=== PATIENT | female | born 1970 | race Caucasian/White ===

== ENCOUNTER → 2017-02-19 | Outpatient (CLI) | payer OTHER ==
--- NOTE | ~2017-02-19 | SLE ---
[facility] [address] [place] [address] POLYSOMNOGRAPHY STUDY Name: MELQUIADES LONG Room #: REG [facility].#: [id number] Admission: 02/19/17 Attend Phys: Jennifer Wallace MD Discharge: Date of : 68 Report #: [id number] THIS REPORT FOR: //name// CC: Dr. William Tovar MD History A 47-year-old, height 70 inches, weight 290 pounds, usually goes to bed at 10:00 p.m., gets out of bed at 5:15 a.m., does not feel refreshed. No definite daytime somnolence. She does not know if she snores. Meds include Adderall, omeprazole, Zoloft, hydroxychloroquine, Zyrtec, and eye drops. COMMENTS: During study per nuclear worker technician note, the patient experienced claustrophobia and reflux, did not meet criteria until later in the study. SLEEP SUMMARY: Sleep efficiency 81%. Total sleep time 343 minutes. Sleep latency 5 minutes, REM latency 166 minutes. SLEEP STAGE: 1 - 8%, 2 - 67%, REM - 25%. RESPIRATORY SUMMARY: Central apnea 0, mixed apnea 0, obstructive apnea 4, hypopnea 86. Apnea/hypopnea index of 16 events per recording hour. Non-REM AHI 3, REM AHI 56. Supine AHI 23, left lateral 8 events per sleep hour. Max heart rate 115. Periodic limb movement with arousal index 2 events per sleep hour. 46% of the time in snoring. Low oxygen saturation 88%. IMPRESSION: 1. Obstructive sleep apnea/hypopnea, G47.33. 2. Positional component. 3. Periodic limb movement with arousal index of 1.8 events per hour. 4. Significant snoring noted. 5. Four beat arrhythmia noted. SUGGESTIONS: 1. In addition to specific therapy, the patient should be cautioned regarding driving or operating dangerous machinery unless fully alert. The patient should be cautioned regarding the use of respiratory depressants. 2. Sleep position retraining is recommended. 3. The patient should be cautioned on use of respiratory depressants. 4. May consider Holter monitor. 5. Further discussion regarding reflux and claustrophobia is recommended. 6. Oral appliance or appropriate surgery may be considered with appropriate followup. 7. A CPAP titration night or a home autotitrating CPAP depending on the patient's situation is recommended. 8. If signs and symptoms not improved with therapy, further evaluation is [facility] [address] [place] [address] POLYSOMNOGRAPHY STUDY Name: MELQUIADES LONG Room #: [facility] [id number] Admission: 02/19/17 Attend Phys: Jennifer Wallace MD Discharge: Date of : 68 Report #: [id number] recommended. Please do not hesitate to contact me if I may be of further assistance. <ELECTRONICALLY SIGNED> By: Jennifer Wallace MD 02/22/17 [id number] 1638 Jennifer Wallace MD /jinny
== END ==
LOC: SLEEPLAB 12:45
DX: G47.33 Obstructive sleep apnea (adult) (pediatric) (principal)

== ENCOUNTER 2017-07-08 05:04 | Inpatient (IN) | payer OTHER ==
[~2017-07-08] VITALS: Ht 175.3 cm; Wt 129.5 kg
[2017-07-08] VITALS (7 sets, daily range): BP systolic 114–147; BP diastolic 54–93
--- NOTE | ~2017-07-08 | O ---
[facility] [place] [address] OPERATIVE REPORT Name: MELQUIADES LONG Room #: 405-P [facility] IN M.R.#: [id number] Admission: 07/08/17 Attend Phys: Vu Thomas MD, Discharge: Date of : 68 Report #: [id number] THIS REPORT FOR: //name// CC: Vu Tovar DATE OF SERVICE: 07/08/2017 PREOPERATIVE DIAGNOSES: 1. Hypertension. 2. Hyperlipidemia. 3. Chronic fatigue. 4. Chronic bilateral lower extremity joint pain. 5. Lumbago. 6. Morbid obesity with a body mass index of 41.64. POSTOPERATIVE DIAGNOSES: 1. Hypertension. 2. Hyperlipidemia. 3. Chronic fatigue. 4. Chronic bilateral lower extremity joint pain. 5. Lumbago. 6. Morbid obesity with a body mass index of 41.64. PROCEDURES PERFORMED: 1. Laparoscopic sleeve gastrectomy. 2. Thorough esophagogastroduodenoscopy (EGD). SURGEON: Vu Thomas M.D. CO FOUNDER: Kavon Daniels M.D. ANESTHESIA: General endotracheal anesthesia. ESTIMATED BLOOD LOSS: Minimal (less than 10 mL). COMPLICATIONS: None appreciated. SPECIMENS: Two-thirds of the lateral gastric resection specimen to Pathology. INDICATIONS: The patient is a 47-year-old morbidly obese female who has presented for her desire for weight loss surgery as she has had a very long history of obesity and has had numerous weight loss attempts, all to no avail. The patient has greater than 100 pounds over her ideal body weight with a BMI of greater than 40 while carrying numerous comorbid conditions that are highly associated with her obesity as delineated above. The patient has been seen by [address] [address] OPERATIVE REPORT Name: MELQUIADES LONG Room #: 405-P ADM IN M.R.#: [id number] Admission: 07/08/17 Attend Phys: Vu Thomas MD, Discharge: Date of : 68 Report #: [id number] her primary care physician as well as by Nutrition and Psychology and has been cleared to proceed forward with bariatric surgery as well as having it indicated that it is necessary for weight loss and resolution of her comorbid conditions. After undergoing an aggressive period of attempted diet and exercise under my direction with no real weight loss, indication was therefore to proceed forward with surgical intervention today. DESCRIPTION OF PROCEDURE: After explaining the risks, benefits and alternatives of the procedure with the patient in detail in the preoperative holding area and obtaining written consent, the patient was brought to the operating room and placed supine on the operating room table. After conducting a thorough timeout procedure verifying correct patient and procedure, the patient was given general endotracheal anesthesia. Once adequate anesthesia was obtained, her SCDs were hooked up to pneumatic compression device. She was given a preoperative dose of antibiotics in line with the SCIP protocol. The patient's abdomen was now prepped and draped in standard surgical sterile fashion after positioning her in the low lithotomy position with her legs in the Yellofin stirrups. I began the procedure by performing a thorough EGD. The Runainon upper endoscope was used to intubate the oropharynx and was traversed down into the esophagus with ease. This was advanced through the pylorus into the second portion of the duodenum where slow careful withdrawal of the scope showed no evidence of duodenitis, gastritis, esophagitis, mass lesions or ulcerations. A retroflexion view of the scope within the gastric lumen showed no evidence of a hiatal hernia. The scope was straightened out with its tip at the level of the pylorus where it was then taped into position and the stomach was fully desufflated. I now turned my attention to the operative portion of the procedure. After sterilely scrubbing, 5 mL of 0.5% Marcaine with epinephrine were used to anesthetize the skin in the right upper quadrant and midclavicular line in the subcostal location. A #15 bladed scalpel was used to create a 1.5 cm transverse skin incision at this location. A 15 mm Visiport was placed over 0 degree 5 mm laparoscope and was introduced through this incision site. Once intraabdominal placement was verified visually, the obturator for the trocar and laparoscope were both removed and the abdomen was insufflated to 15 mmHg using carbon dioxide gas. The laparoscope was changed to a 5-mm 30-degree laparoscope, which was reintroduced through this trocar. The entire abdomen was evaluated to ensure no injury upon entry and no pathology. I now proceeded to place 3 additional 5 mm trocars in the patient's left mid abdomen. The first was placed 1 cm superior to the umbilicus and 2 cm to the patient's left, another one was placed 5 cm lateral to that and the final one was placed in the extreme left lateral flank. All 3 additional 5 mm ports were placed under direct vision after anesthetizing the skin at each location with 5 mL of 0.5% Marcaine with epinephrine and I had created small skin nicks using #15 bladed scalpel. Laparoscope was placed with a 5 mm port just to the left of the patient's umbilicus and she was placed in steep reverse Trendelenburg position. I now placed a Carmen liver retractor in subxiphoid location by anesthetizing the skin at that location with 5 mL of 0.5% Marcaine with epinephrine and I had created a small skin alyssa using #15 [facility] [address] [place] [address] OPERATIVE REPORT Name: MELQUIADES LONG Room #: 405-P ADM IN M.R.#: [id number] Admission: 07/08/17 Attend Phys: Vu Thomas MD, Discharge: Date of : 68 Report #: [id number] bladed scalpel. I utilized the obturator from the 5 mm port to penetrate the fascia at this level and then maneuvered the Carmen retractor through this defect where it was positioned up under the left lobe of the liver and was held up against the posterior aspect in the anterior abdominal wall. This was then fixed into position at this location using the iron sports broadcasting internship device to stabilize it and we had complete access to the full stomach and hiatal region again seeing no evidence of a hiatal hernia. I now started my dissection after identifying our landmarks. The vein of Traore was identified overlying the pylorus. I measured 4 cm proximal to this location and began taking down the short gastric arteries from this location all the way up the greater curvature of the stomach using the Harmonic scalpel for hemostasis. Once I arrived upon the base of the left jacquelyn, the stomach was elevated and all posterior gastric attachments were taken down ensuring that we were well away from both the posterior aspect of the stomach as well as the anterior aspect of the pancreas so as to prevent injury from thermal spread. Now that I have full mobilization of the stomach, the EGD scope was positioned to run along the lesser curvature of the stomach and the OG tube was removed. I now started the stapling portion of the procedure. Using the [place] 60 mm stapler with a black load utilizing Porter's Hawa-Strip buttressing material placed over it, I placed a staple into the abdomen through the 15 mm port and this first firing was carried out starting at the location 4 cm proximal to the pylorus. This was then fired right along the scope firing not too close to the scope so as not to cause stricturing, especially at the incisura. Another firing of an additional black load again utilizing Porter's Hawa-Strip buttressing material was carried out following the scope as a 34-Armenian bougie. Five additional firings of green loads all utilizing Porter's Hawa-Strip buttressing material were carried out following the scope as a bougie all the way up to the left jacquelyn until the stomach was completely transected. The resection specimen was placed in the right upper quadrant and staple line was evaluated. There were a few areas of oozing along the staple line and as such, a laparoscopic clip product advisor was used to obtain complete hemostasis at those areas of ooze. A 10 mL of Tisseel on the Duplospray device were now used to coat the entirety of the staple line with fibrin glue. Once this was dry, normal saline was instilled in the upper abdomen and the EGD scope was reignited and the stomach was gently reinsufflated. The EGD scope was removed slowly evaluating the staple line from the inside to ensure hemostasis and we saw no bleeding whatsoever. Upon gently insufflating the stomach having the staple line submerged under the normal saline in the abdomen, we saw no evidence of bubbling thereby signifying a negative leak test. The EGD scope was used to fully desufflate the stomach, was removed via the oropharynx, passed off the field and I sterilely reentered the operative field once again. Normal saline was gently suctioned out of the abdomen and it ran clear throughout. The Carmen liver retractor was let down and the liver was healthy and uninjured. The sleeve gastrectomy was evaluated and had excellent orientation with no twisting and we had a negative leak test with complete hemostasis. The resection specimen was now removed from the abdomen through the 15 mm fascial incision under direct vision. I then closed the 15 mm fascial incision using 0 [facility] [place] [address] OPERATIVE REPORT Name: MELQUIADES LONG Room #: 405-P ADM IN M.R.#: [id number] Admission: 07/08/17 Attend Phys: Vu Thomas MD, Discharge: Date of : 68 Report #: [id number] PDS suture on a Yovany-Oral needle under direct vision. The abdomen was fully desufflated. All ports were removed under direct vision. A 4-0 Monocryl was used in a standard subcuticular fashion for all skin incisions and Dermabond glue was applied to all skin wounds. The corner of the resection specimen that had been removed was trimmed away and normal saline was passively instilled into the resection specimen yielding 1850 mL in the resection specimen itself. At the end of the procedure, all instrument, needle and sponge counts were correct. The patient tolerated the procedure without incident, was awakened in the operating room and transitioned to the recovery room in stable condition with no apparent complications. <ELECTRONICALLY SIGNED> By: Vu Thomas MD, FACS 07/09/17 0757 [id number] 1719 Vu Thomas MD, FACS /nt
--- NOTE | ~2017-07-08 | S ---
[facility] [place] [place] [address] SURGICAL PATH RPT PROCEDURE Name: MELQUIADES ANDERS Room #: 405-P [facility] IN M.R.#: [id number] Admission: 07/08/17 Date of : 68 Discharge: 07/09/17 Report #: [id number] Path Case #: [id number] PATHOLOGY REPORT COLLECTION DATE: 07/08/2017 RECEIVED DATE: 07/08/2017 SUBMITTING PHYS: Dr. Vu Thomas OTHER PHYS: SPECIMEN(S) RECEIVED: A.Gastric sleeve * * * * * * * * * * * * FINAL DIAGNOSIS: Stomach, gastric sleeve, partial sleeve gastrectomy: - No diagnostic abnormalities present, history of morbid obesity. (IUV:mgr; 07/12/2017) PATHOLOGIST: Mary Cano M.D. REPORT ELECTRONICALLY SIGNED BY: Mary Cano M.D. DATE/TIME: 07/12/2017 18:50 * * * * * * * * * * * * GROSS PATHOLOGY: The specimen is received in formalin, labeled "Melquiades Anders gastric sleeve" is a partial gastrectomy specimen weighing 204 g and measuring 27.6 x 11.5 x 3.5 cm. The serosa has a cullen to purple chavez, focally congested appearance. The margin resection is closed with a line of mariano. The lumen contains brown green to pink red, blood-tinged mucoid material. The mucosa is cullen-green to pink red, velvety and shows its normal rugal folds. No mass lesions or transmural defects are identified. Exhibition Organiser sections are submitted in cassettes A1-A3. (JWP; 07/09/2017) CLINICAL HISTORY: Morbid obesity INITIAL CPT CODE(S): A; 50739 Professional services performed by [facility] at [facility] [address], [place] [address] Technical services performed by [facility] at [address] [place] [address] [address] [place] [address] SURGICAL PATH RPT PROCEDURE Name: MELQUIADES ANDERS Room #: 405-P [facility] IN .R.#: [id number] Admission: 07/08/17 Date of : 68 Discharge: 07/09/17 Report #: [id number] Path Case #: [id number] [place] [address]. [facility] [address] [place] [address] PHONE: [phone] DIRECTOR: John Murguia M.D. * * * END OF REPORT * * *
[~2017-07-08 05:04] MED LIST: HYDROXYCHLOROQ200 M1 PO; OMEPRAZOLE40 MG PO; ZOLOFT25 MG PO
[2017-07-09 00:26] VITALS: BP 91/52
[2017-07-09 03:45] VITALS: BP 100/60
[2017-07-09 05:48] LABS: HEMATOCRIT 37.5 % (37.0-47.0); HEMOGLOBIN 12.8 gm/dL (12.0-15.0); MCH 31.5 pg (26.0-34.0); MCHC 34.1 g/dL (28.0-37.0); MCV 92.6 fL (80.0-100.0); RBC 4.05 mil/uL (4.20-5.00); RDW 13.4 % (10.5-14.5); WBC 9.4 thou/uL (4.0-11.0)
[2017-07-09 06:02] LABS: CALCIUM 7.8 mg/dL (8.5-10.1); CREATININE 0.6 mg/dL (0.6-1.0); POTASSIUM 3.5 mmol/L (3.5-5.1)
[2017-07-09 07:50] VITALS: BP 128/72
[2017-07-09] MEDS ORDERED: HYDROCODONE-ACE15 ML PO (10:05)
[2017-07-09] MEDS ORDERED: ZOFRAN ODT4 MG DISSOLVE (10:09)
[2017-07-09 11:01] VITALS: BP 128/72
== END 2017-07-09 11:39 | disposition home or self-care (01) | DRG 621 ==
LOC: OR 05:04 → TBA 05:05 → EDSTATUS 08:17 → OR 08:18 → 4N 11:43 → GI 14:20 → 4N 07-09 11:39
PROVIDERS: Surgery
PROC: 0DB64Z3 Excision of Stomach, Percutaneous Endoscopic Approach, Vertical (ICD-10-PCS; principal; 2017-07-08)
DX: E66.01 Morbid (severe) obesity due to excess calories (principal); R53.82 Chronic fatigue, unspecified; M54.5 Low back pain; Z68.41 Body mass index [BMI] 40.0-44.9, adult; I10 Essential (primary) hypertension; E78.5 Hyperlipidemia, unspecified; G89.29 Other chronic pain; M79.605 Pain in left leg; M79.604 Pain in right leg; M19.90 Unspecified osteoarthritis, unspecified site; K21.9 Gastro-esophageal reflux disease without esophagitis; G47.33 Obstructive sleep apnea (adult) (pediatric); K59.00 Constipation, unspecified; E03.9 Hypothyroidism, unspecified; H40.9 Unspecified glaucoma; E11.9 Type 2 diabetes mellitus without complications
CPT/HCPCS: 10790; 50010; 50101; 50222; 50249; 50386; 50555; 50739; 50740; 50962; 51437; 52182; 52265; 53307; 53311; 54022; 54118; 55245; 56462; 56525; 56526; 57092; 62110; 62900; 70005